=== PATIENT | male | born 1985 ===

== ENCOUNTER 2020-04-09 19:41 | Emergency (ER) | payer SELFPAY ==
[~2020-04-09] VITALS: Ht 177.8 cm; Wt 68.9 kg
--- NOTE | 2020-04-09 20:00 | NUR ---
admitted pt to [facility] ambulatory c/o nausea/ vomiting x [address] ferrara will see & evaluate pt.
[2020-04-09 20:30] LABS: BASOPHILS % (AUTO) 0.8 % (0.0-2.0); EOSINOPHILS # (AUTO) 0.1 K/uL (0.0-0.7); EOSINOPHILS % (AUTO) 1.5 % (0.0-7.0); HEMATOCRIT 34.7 % (36.7-47.1); HEMOGLOBIN 11.7 g/dL (12.5-16.3); LYMPHOCYTES # (AUTO) 2.1 K/uL (20.0-40.0); LYMPHOCYTES % (AUTO) 37.8 % (20.5-51.5); MEAN CORPUSCULAR HGB CONC 34 g/dL (32.5-36.3); MONOCYTES # (AUTO) 0.9 K/uL (2.0-10.0); MONOCYTES % (AUTO) 17.2 % (0.0-11.0); NEUTROPHILS # (AUTO) 2.4 K/uL (1.8-8.9); NEUTROPHILS % (AUTO) 42.7 % (38.5-71.5); PLATELET COUNT (AUTO) 273 K/uL (152-348); RED BLOOD CELL COUNT(AUTO) 3.77 MIL/uL (4.06-5.63); WHITE BLOOD COUNT (AUTO) 5.5 K/uL (3.6-10.2)
[2020-04-09 20:32] LABS: CREATININE 1.1 mg/dL (0.6-1.3); POTASSIUM 3.6 mmol/L (3.5-5.1)
[2020-04-09 20:38] LABS: BILIRUBIN,DIRECT 0.1 mg/dL (0.0-0.2); BILIRUBIN,TOTAL 0.4 mg/dL (0.2-1.0); TOTAL PROTEIN, SERUM 6.9 g/dL (6.4-8.2)
[2020-04-09 20:46] LABS: THYROID STIMULATING HORMONE 0.587 mIU/mL (0.358-3.740)
[2020-04-09 21:07] LABS: NEUTROPHILS % (MANUAL) 58 % (42-75)
[2020-04-09 21:08] VITALS: BP 130/90
[2020-04-09 21:08] LABS: LYMPHOCYTES % (MANUAL) 37 % (20-40); MONOCYTES % (MANUAL) 4 % (2-10)
--- NOTE | 2020-04-09 21:11 | NUR ---
Patient discharged to home ambulatory in stable condition. Written and verbal after care instructions given.prescription of medications given to pt. Patient verbalizes understanding of instructions. Stressed follow up or return to ER for worsening s/s.
== END 2020-04-09 21:13 | disposition home or self-care (01) ==
LOC: ER 19:46
DX: R11.2 Nausea with vomiting, unspecified (principal); K21.9 Gastro-esophageal reflux disease without esophagitis; R79.89 Other specified abnormal findings of blood chemistry; D64.9 Anemia, unspecified; F12.90 Cannabis use, unspecified, uncomplicated
CPT/HCPCS: 36415; 70030-TC; 83690; 84443; 85025; A4663